=== PATIENT | male | born 1995 | race Caucasian/White ===

== ENCOUNTER 2020-08-22 18:41 | Emergency (ER) | payer OTHER ==
[~2020-08-22] VITALS: Ht 177.8 cm; Wt 99.2 kg
--- NOTE | 2020-08-22 19:35 | REP ---
INDICATION: fall, pain. COMPARISON: None. TECHNIQUE: Two views FINDINGS: Shaft of the radius and ulna were intact the radial head and capitellum align normally in the olecranon articulates normally with the distal humerus. The distal radiocarpal articulation was unremarkable on these 2 images. No focal bone abnormalities or avulsion seen. IMPRESSION: 1. No visible or displaced fracture about the forearm. <Electronically signed by Pablito Calderon > 08/22/201930
[2020-08-22 21:51] VITALS: BP 146/75
== END 2020-08-22 21:54 | disposition home or self-care (01) ==
LOC: M ED 18:41
DX: M79.632 Pain in left forearm (principal); F17.210 Nicotine dependence, cigarettes, uncomplicated